=== PATIENT | female | born 2000 | race Two or more races ===

== ENCOUNTER 2020-02-16 08:57 | Outpatient (CLI) | payer OTHER | END 2020-02-16 09:05 | disposition home or self-care (01) | LOC: SONOGRAMA 08:57 → MAMO-SONO 09:15 | PROVIDERS: ATTEND General Practice | DX: R10.84 Generalized abdominal pain (principal); Z00.8 Encounter for other general examination; R94.5 Abnormal results of liver function studies ==

== ENCOUNTER 2023-10-12 10:25 | Outpatient (CLI) | payer OTHER | END 2023-10-12 10:41 | disposition home or self-care (01) | LOC: SONOGRAMA 10:25 | PROVIDERS: ATTEND Specialist | DX: R10.13 Epigastric pain (principal); E16.2 Hypoglycemia, unspecified; Z13.21 Encounter for screening for nutritional disorder; Z13.29 Encounter for screening for other suspected endocrine disorder ==

== ENCOUNTER 2024-08-15 07:38 | Outpatient (CLI) | payer OTHER | END 2024-08-15 07:48 | disposition home or self-care (01) | LOC: SONOGRAMA 07:38 | DX: Z11.3 Encounter for screening for infections with a predominantly sexual mode of transmission (principal); Z13.0 Encounter for screening for diseases of the blood and blood-forming organs and certain disorders involving the immune mechanism; Z13.1 Encounter for screening for diabetes mellitus; Z13.220 Encounter for screening for lipoid disorders; Z13.29 Encounter for screening for other suspected endocrine disorder; N39.0 Urinary tract infection, site not specified ==